=== PATIENT | female | born 1965 | race Caucasian/White ===

== ENCOUNTER → 2016-06-10 | Outpatient (CLI) | payer BC ==
[~2016-06-10] MED LIST: ACHYD1T PO; ASP81CT; ATR20T; CHOL10002; DCS100C PO; FOLI-88 PO; LOSA1TAB3 PO; MTF500T; NFBIOT1000 PO; NITR-33 PO; TIMOLOL
--- OUTSIDE RECORDS SUMMARY | 2016-06-10 07:24 | XMS REPORT | Continuity of Care Document ---
Author Author [facility] Organization [facility] Address Unknown Phone Unavailable Care Team Providers Care Aircraft Inspection Record Clerk Name Role Phone EKATERINA DAVID DO PCP Insurance Providers Payer Name Policy Number Subscriber Name Relationship [facility] [id number] Deborah Uriostegui 16 Self / Same As Patient Advance Directives Directive Response Recorded Date/Time Advance Directives No 01/20/14 1:38pm Health Care Power of Sand Screener No 01/20/14 1:38pm Resuscitation Status Full Code 01/20/14 1:38pm Chief Complaint and Reason for Visit Chief Complaint URETERAL STONE (OBSTRUCTIVE) COMPLICATED BY UTI Reason for Visit Urinary tract infection Ureteral stone with hydronephrosis Nausea and vomiting Abdominal pain Problems Medical Problems Problem Onset Date Status Urinary tract infection Unknown Active Ureteral stone with hydronephrosis Unknown Active Nausea and vomiting Unknown Active Abdominal pain Unknown Active Medications Medication Dose Route Sig Days/Qty Instructions Order Date Discontinued Date Status Atorvastatin Calcium 07/29/08 01/20/14 Discontinued Metformin HCl 07/29/08 01/20/14 Discontinued [Betimol Eye Gtts] 07/29/08 01/20/14 Discontinued Cholecalciferol 07/29/08 01/20/14 Discontinued Aspirin 07/29/08 01/20/14 Discontinued Losartan/Hydrochlorothiazide 1 Tab PO DAILY 01/20/14 Active Docusate Sodium 100 Mg PO DAILY 01/21/14 Active Folic Acid/Multivits-Min/Lut 1 Tab.chew PO DAILY 01/21/14 Active Social History Social History Problem Response Recorded Date/Time Alcohol Use Denies Use 01/20/2014 1:39pm Recreational Drug Use No 01/20/2014 1:39pm Recent Foreign Travel No 01/20/2014 1:39pm Recent Infectious Disease Exposure No 01/20/2014 1:39pm Smoking Status Never a Smoker 01/20/2014 1:44pm Query Response Start Date Stop Date Smoking Status Never a Smoker Hospital Discharge Instructions Patient Instructions Physician Instructions New, Converted, or Re-newed RX: RX on Chart Plan Please make appointment to been seen in office on monday Increase oral fluids for 48 hours and then as needed. Diet and Activity as tolerated. If questions or concerns contact your physician Or seek help at emergency department. Plan of Care Discharge Date 01/21/14 4:19pm Disposition 01 HOME, SELF-CARE Instructions/Education Provided Ureteroscopic Kidney Stone Removal (DC) Forms Provided Follow-Up Appts. PDI Surgical Prescriptions See Medications Section Functional Status Query Response Date Recorded Patient Orientation Person Place Time Situation January 21, 2014 4:26pm Comprehension Ability Understands Concepts January 20, 2014 8:00pm Allergies, Adverse Reactions, Alerts Allergen Type Severity Reaction Status Last Updated NKANo Known Allergies Allergy Unknown Active 07/29/08 Immunizations Name Given Type Date of Pneumonia Vaccine 05/22/11 Historical Hepatitis B Yes Historical Tetanus Booster (TDap) More than 5yrs Historical Vital Signs Acute Vital Signs Vital Response Date/Time Temperature (Fahrenheit) 96.7 degrees F (97.6 - 99.5) Temperature (Calculated Celsius) 35.85110 degrees C (36.4 - 37.5) Temperature Source Tympanic Pulse Rate (adult) 64 bpm (60 - 90) Respiratory Rate 18 bpm (12 - 24) O2 Sat by Pulse Oximetry 98 % (88 - 100) Blood Pressure 124/83 mm Hg Pain Pain Intensity 0 Height (Feet) 5 feet Height (Inches) 4.00 inches Height (Calculated Centimeters) 162.497362 cm Weight (Pounds) 224 pounds Weight (Calculated Grams) 361719.692 gm Weight (Calculated Kilograms) 101.093882 kilograms Calculated BMI 38.44 Results Test Source Date Result Interp. Ref. Range Comments Alanine Aminotransferase (ALT/SGPT) January 20, 2014 8:40am 18 U/L N 0 -55 Albumin January 20, 2014 8:40am 3.8 G/DL N 3.2-4.5 Alkaline Phosphatase January 20, 2014 8:40am 56 U/L N 40-136 Aspartate Amino Transf (AST/SGOT) January 20, 2014 8:40am 21 U/L N 5- 34 BUN/Creatinine Ratio January 20, 2014 8:40am 17 - Band Neutrophils July 29, 2008 5:45pm 3 % - Basophils # (Auto) January 20, 2014 8:40am 0.1 10^3/uL N 0.0-0.1 Basophils % (Manual) July 29, 2008 5:45pm 0 % - Basophils (%) (Auto) January 20, 2014 8:40am 1 % N 0-10 Blood Urea Nitrogen January 20, 2014 8:40am 14 MG/DL N 7-18 Calcium Level January 20, 2014 8:40am 9.4 MG/DL N 8.5-10.1 Carbon Dioxide Level January 20, 2014 8:40am 19 MMOL/L L 21-32 Chloride Level January 20, 2014 8:40am 104 MMOL/L N 98-107 Creatinine January 20, 2014 8:40am 0.82 MG/DL N 0.60-1.30 Eosinophils # (Auto) January 20, 2014 8:40am 0.1 10^3/uL N 0.0-0.3 Eosinophils % (Manual) July 29, 2008 5:45pm 1 % - Eosinophils (%) (Auto) January 20, 2014 8:40am 0 % N 0-10 Glucose Level January 20, 2014 8:40am 157 MG/DL H 70-105 Hematocrit January 20, 2014 8:40am 37 % N 35-52 Hemoglobin January 20, 2014 8:40am 11.6 G/DL N 11.5-16.0 Lipase January 20, 2014 8:40am 22 U/L N 8-78 Lymphocytes # (Auto) January 20, 2014 8:40am 1.1 X 10^3 N 1.0-4.0 Lymphocytes % (Manual) July 29, 2008 5:45pm 18 % - Lymphocytes (%) (Auto) January 20, 2014 8:40am 10 % L 12-44 Mean Corpuscular Hemoglobin January 20, 2014 8:40am 24 PG L 25-34 Mean Corpuscular Hemoglobin Concent January 20, 2014 8:40am 32 G/DL N 32-36 Mean Corpuscular Volume January 20, 2014 8:40am 74 FL L 80-99 Mean Platelet Volume January 20, 2014 8:40am 10.3 FL N 7.4-10.4 Monocytes # (Auto) January 20, 2014 8:40am 0.7 X 10^3 N 0.0-1.0 Monocytes % (Manual) July 29, 2008 5:45pm 4 % - Monocytes (%) (Auto) January 20, 2014 8:40am 6 % N 0-12 Neutrophils # (Auto) January 20, 2014 8:40am 9.8 X 10^3 H 1.8-7.8 Neutrophils % (Manual) July 29, 2008 5:45pm 74 % - Neutrophils (%) (Auto) January 20, 2014 8:40am 83 % H 42-75 Platelet Count January 20, 2014 8:40am 304 10^3/uL N 130-400 Potassium Level January 20, 2014 8:40am 3.7 MMOL/L N 3.6-5.0 Red Blood Count January 20, 2014 8:40am 4.93 10^6/uL N 4.35-5.85 Red Cell Distribution Width January 20, 2014 8:40am 20.5 % H 10.0- 14.5 Sodium Level January 20, 2014 8:40am 140 MMOL/L N 135-145 Stone Ammonia December 19, 2005 7:25am See report - Stone Calcium December 19, 2005 7:25am See report - Stone Magnesium December 19, 2005 7:25am See report - Stone Phosphate December 19, 2005 7:25am See report - Stone Uric Acid December 19, 2005 7:25am See report - Total Bilirubin January 20, 2014 8:40am 0.3 MG/DL N 0.1-1.0 Total Protein January 20, 2014 8:40am 7.3 G/DL N 6.4-8.2 Urine Bacteria January 20, 2014 9:40am LARGE /HPF H - Has specimen been collected/obtained? YSpecimen Description CLEAN CATCH Urine Bilirubin January 20, 2014 9:40am NEGATIVE - Has specimen been collected/obtained? YSpecimen Description CLEAN CATCH Urine Casts January 20, 2014 9:40am NONE /LPF - Has specimen been collected/obtained? YSpecimen Description CLEAN CATCH Urine Citrate December 19, 2005 7:25am See report - Urine Clarity January 20, 2014 9:40am VERY CLOUDY H - Has specimen been collected/obtained? YSpecimen Description CLEAN CATCH Urine Color January 20, 2014 9:40am YELLOW - Has specimen been collected/obtained? YSpecimen Description CLEAN CATCH Urine Creatinine December 19, 2005 7:25am See report - Urine Crystals January 20, 2014 9:40am NONE /LPF - Has specimen been collected/obtained? YSpecimen Description CLEAN CATCH Urine Culture Indicated January 20, 2014 9:40am YES - Has specimen been collected/obtained? YSpecimen Description CLEAN CATCH Urine Glucose (UA) January 20, 2014 9:40am 1+ H - Has specimen been collected/obtained? YSpecimen Description CLEAN CATCH Urine Ketones January 20, 2014 9:40am 4+ H - Has specimen been collected/obtained? YSpecimen Description CLEAN CATCH Urine Leukocyte Esterase January 20, 2014 9:40am 2+ H - Has specimen been collected/obtained? YSpecimen Description CLEAN CATCH Urine Mucus January 20, 2014 9:40am NEGATIVE /LPF - Has specimen been collected/obtained? YSpecimen Description CLEAN CATCH Urine Nitrite January 20, 2014 9:40am POSITIVE H - Has specimen been collected/obtained? YSpecimen Description CLEAN CATCH Urine Oxalate December 19, 2005 7:25am See report - Urine Protein January 20, 2014 9:40am 3+ H - Has specimen been collected/obtained? YSpecimen Description CLEAN CATCH Urine RBC January 20, 2014 9:40am TNTC /HPF H - Has specimen been collected/obtained? YSpecimen Description CLEAN CATCH Urine Specific Mondamin January 20, 2014 9:40am 1.025 H - Has specimen been collected/obtained? YSpecimen Description CLEAN CATCH Urine Squamous Epithelial Cells January 20, 2014 9:40am 5-10 /HPF - Has specimen been collected/obtained? YSpecimen Description CLEAN CATCH Urine Total Volume December 19, 2005 7:25am See report - Urine Urobilinogen January 20, 2014 9:40am 1 MG/DL - Has specimen been collected/obtained? YSpecimen Description CLEAN CATCH Urine WBC January 20, 2014 9:40am 5-10 /HPF H - Has specimen been collected/obtained? YSpecimen Description CLEAN CATCH Urine pH January 20, 2014 9:40am 5 - Has specimen been collected/ obtained? YSpecimen Description CLEAN CATCH White Blood Count January 20, 2014 8:40am 11.8 10^3/uL H 4.3-11.0 Glucometer July 31, 2008 11:07am 140 MG/DL H 70-110 Estimat Glomerular Filtration Rate January 20, 2014 8:40am > 60 - GFR INTERPRETIVE DATA UNITS FOR ESTIMATED GFR (eGFR): mL/min/1.73 M2 REFERENCE RANGE FOR ESTIMATED GFR (eGFR) eGFR NORMAL eGFR >60 MODERATELY DECREASED eGFR 30-59 SEVERLY DECREASED eGFR 15-29 KIDNEY FAILURE <15 (OR DIALYSIS) Urine Sulfate December 19, 2005 7:25am See report - Blood Morphology Comment July 29, 2008 5:45pm NORMAL - Urine Potassium December 19, 2005 7:25am See report - Urine Sodium December 19, 2005 7:25am See report - Urine RBC (Auto) January 20, 2014 9:40am 5+ H - Has specimen been collected/obtained? YSpecimen Description CLEAN CATCH Procedures No known history of procedures. Encounters Encounter Location Date/Time Admitted Inpatient Via [facility] 01/20/14 11:38am Recent Diagnosis Urinary tract infection Ureteral stone with hydronephrosis Nausea and vomiting Abdominal pain
--- NOTE | 2016-06-10 13:31 | Diagnostic Imaging Report ---
Bilateral screening mammogram. The current study was also evaluated with a Computer Aided Detection (CAD) system. INDICATION: Screening. No current complaints stated on the questionnaire. COMPARISON: 04/24/2015. FINDINGS: The breasts are composed of scattered fibroglandular densities. There are occasional punctate calcifications seen. Stable intramammary lymph nodes seen in the axillary tail of the right breast and in both axilla. Allowing for technique and positional differences, no suspicious change is seen. IMPRESSION: No significant change. ACR BI-RADS Category 2: Benign findings. Result letter will be mailed to the patient. Note: At least 10% of breast cancer is not imaged by mammography. Dictated by: Dictated on workstation # [id number]
== END ==
LOC: RAD 07:22
PROVIDERS: ATTEND Family Medicine
DX: Z12.31 Encounter for screening mammogram for malignant neoplasm of breast (principal)

== ENCOUNTER → 2017-06-16 | Outpatient (CLI) | payer BC ==
--- NOTE | 2017-06-16 19:06 | Diagnostic Imaging Report ---
INDICATION: Routine screening. Comparison is made with prior study from 06/10/2016 and 04/24/2015. The current study was also evaluated with a Computer Aided Detection (CAD) system. Both breasts are primarily involutional. Intramammary lymph node upper outer right breast is again noted. No new mass or malignant appearing microcalcifications are seen. The axillae are unremarkable. IMPRESSION: No mammographic features suspicious for malignancy are identified. ACR BI-RADS Category 2: Benign findings. Result letter will be mailed to the patient. Note: At least 10% of breast cancer is not imaged by mammography. Dictated by: Dictated on workstation # [id number]
== END ==
LOC: RAD 07:21
PROVIDERS: ATTEND Family Medicine
DX: Z12.31 Encounter for screening mammogram for malignant neoplasm of breast (principal)
CPT/HCPCS: 77067

== ENCOUNTER → 2018-07-10 | Outpatient (CLI) | payer BC ==
--- NOTE | 2018-07-10 10:54 | Diagnostic Imaging Report ---
US NON OB PELVIS COMP/TRANSVAG TECHNIQUE: Transabdominal and transvaginal grayscale, color Doppler and pulse duplex imaging of the pelvis was performed. INDICATION: Pelvic pain COMPARISON: CT of the abdomen and pelvis of 01/20/2014. FINDINGS: The uterus measures 7.4 x 8.0 x 3.6 cm. The myometrium is heterogeneous in echogenicity with three circumscribed heterogeneous solid masses present. The largest measures 4.4 x 3.6 x 4.5 cm and is located near the fundus. There are additional smaller intramural fibroids present. Due to the numerous myometrial masses, the endometrium is poorly seen. Where visualized it measures approximately 0.37 cm in thickness. Neither the right nor left ovary can be visualized due to surrounding bowel gas. No free pelvic fluid or suspicious adnexal mass. IMPRESSION: Multiple fibroids throughout the uterus are not significantly changed since CT of the abdomen and pelvis of 01/20/2014. Dictated by: Dictated on workstation # [id number]
--- NOTE | 2018-07-10 13:20 | Diagnostic Imaging Report ---
INDICATION: Routine screening. COMPARISON: 06/16/2017 and 06/10/2016. TECHNIQUE: 2D and 3D bilateral screening mammography was performed with CAD. FINDINGS: Scattered fibroglandular densities are identified bilaterally. Benign-appearing nodules in the upper outer right breast remain stable. No new mass or malignant appearing microcalcifications are seen. The axillae are unremarkable. IMPRESSION: No mammographic features suspicious for malignancy are identified. ACR BI-RADS Category 2: Benign findings. Result letter will be mailed to the patient. Note: At least 10% of breast cancer is not imaged by mammography. Dictated by: Dictated on workstation # [id number]
== END ==
LOC: RAD 07:11
PROVIDERS: ATTEND Family Medicine
DX: Z12.31 Encounter for screening mammogram for malignant neoplasm of breast (principal); D25.9 Leiomyoma of uterus, unspecified
CPT/HCPCS: 76830; 76856; 77067

== ENCOUNTER → 2019-07-17 | Outpatient (CLI) | payer BC ==
--- NOTE | 2019-07-17 16:05 | Diagnostic Imaging Report ---
INDICATION: Routine screening. COMPARISON: Comparison is made with prior mammograms from 07/10/2018 and 06/16/2017. TECHNIQUE: 2-D and 3-D bilateral screening mammography was performed. The current study was also evaluated with a Computer Aided Detection (CAD) system. 3-D tomosynthesis was also performed and reviewed. FINDINGS: Scattered fibroglandular densities are identified bilaterally. Benign circumscribed nodules in the outer right breast are stable. No new mass or malignant-appearing microcalcifications are seen. Axillae are unremarkable. IMPRESSION: No mammographic features suspicious for malignancy are identified. ACR BI-RADS Category 2: Benign findings. Result letter will be mailed to the patient. Note: At least 10% of breast cancer is not imaged by mammography. Dictated by: Dictated on workstation # [id number]
== END ==
LOC: RAD 14:37
PROVIDERS: ATTEND Family Medicine
DX: Z12.31 Encounter for screening mammogram for malignant neoplasm of breast (principal)
CPT/HCPCS: 77067

== ENCOUNTER → 2020-06-04 | Outpatient (CLI) | payer BC ==
[~2020-06-04] MED LIST changes: +CATHETER FLUSH 10 ML SYR IV PRN
--- NOTE | 2020-06-04 13:59 | Diagnostic Imaging Report ---
RADIOPHARMACEUTICAL: 5.5mCi Tc-99m Choletec IV INDICATION: Right upper quadrant abdominal pain. TECHNIQUE: Anterior dynamic imaging for 1 hour. Additional 60 minutes of imaging was performed after the patient ingested an 8 ounce can of Ensure. FINDINGS: There is homogenous uptake throughout the liver. The gallbladder is visualized at 30minutes and small bowel at 20minutes. After CCK analog administration, there is increased contraction of the gallbladder with increased calculated GBEF at 83%. IMPRESSION: 1. No evidence of acute cholecystitis or common duct obstruction. 2. Elevated GBEF of 83%. This is a nonspecific finding, though can be associated with biliary hyperkinesia. Given mild elevation, this could also simply be physiologic for the patient. Dictated by: Dictated on workstation # [id number]
== END ==
LOC: CARD 11:25
PROVIDERS: ATTEND Family Medicine
DX: R10.11 Right upper quadrant pain (principal)
CPT/HCPCS: 78227; A9537

== ENCOUNTER → 2020-07-20 | Outpatient (CLI) | payer BC ==
[~2020-07-20] MED LIST changes: -CATHETER FLUSH 10 ML SYR IV PRN
--- NOTE | 2020-07-20 09:38 | Diagnostic Imaging Report ---
INDICATION: Routine screening. Comparison is made with prior mammogram 07/17/2019 and 07/10/2018. 2-D and 3-D bilateral screening mammography was performed with CAD. Scattered fibroglandular densities are identified bilaterally. Benign nodules in the upper outer right breast appears stable. The left breast appears stable. No spiculated mass or malignant appearing microcalcifications are seen. Axillae are unremarkable. IMPRESSION: BI-RADS Category 2 No mammographic features suspicious for malignancy are identified. ACR BI-RADS Category 2: Benign findings. Result letter will be mailed to the patient. Note: At least 10% of breast cancer is not imaged by mammography. Dictated by: Dictated on workstation # [id number]
== END ==
LOC: RAD 08:15
PROVIDERS: ATTEND Family Medicine
DX: Z12.31 Encounter for screening mammogram for malignant neoplasm of breast (principal)
CPT/HCPCS: 77063; 77067

== ENCOUNTER → 2020-08-17 | Outpatient (CLI) | payer BC | LOC: CARD 09:00 | PROVIDERS: ATTEND Internal Medicine Cardiovascular Disease | DX: I10 Essential (primary) hypertension (principal) | CPT/HCPCS: 93306 ==

== ENCOUNTER → 2020-09-14 | Outpatient (CLI) | payer BC ==
[~2020-09-14] VITALS: Ht 162 cm; Wt 115.0 kg
[~2020-09-14] MED LIST changes: +CATHETER FLUSH 10 ML SYR IV PRN
[2020-09-14 09:05] VITALS: BP 137/83
--- NOTE | 2020-09-14 16:21 | Cardiology Stress Test Report ---
Stress Test Report Date of Procedure/Referring: Date of Procedure: Sep 14, 2020 PCP Ricky Moody MD Admitting Physician Delai Hernandez DO Indications: HTN Baseline Heart Rate: 70 Baseline Blood Pressure: Blood Pressure Systolic: 137 Blood Pressure Diastolic: 83 Vital Signs Date Time Temp Pulse Resp B/P (MAP) Pulse Ox O2 Delivery O2 Flow Rate FiO2 09/14/20 09:05 80 18 137/83 (101) 98 Room Air Baseline Vital Signs Vital Signs Date Time Temp Pulse Resp B/P (MAP) Pulse Ox O2 Delivery O2 Flow Rate FiO2 09/14/20 09:05 80 18 137/83 (101) 98 Room Air Baseline EKG: Baseline EKG: NSR Summary: After explaining the procedure and details to the patient, she signed the consent and was brought to the stress nuclear laboratory. Patient exercised on standard Taco protocol, EKG, heart rate and blood pressure were monitored continuously, resting and stress doses of radio tracer were injected, imaging was acquired and reviewed in the short axis, horizontal long axis and vertical long axis views Patient was able to exercise for a total of 5 minutes on Taco protocol, METs 7 Maximum heart rate 139 Maximum blood pressure 197/107 Stress EKG, Minimal nondiagnostic changes Recovery EKG, Return to baseline TID: 0.97 SSS: 10 SDS: 5 EF: 71 Conclusion: 1. Fair exercise tolerance for a total of 5 minutes, 7 minutes on standard Taco protocol achieving 85% of maximal expected heart rate 2. Severe hypertensive response to exercise with peak blood pressure 197/107 return to baseline during recovery 3. Minimal nondiagnostic EKG changes with exercise return to baseline during recovery 4. Breast attenuation affecting the quality of the images there is mild decreased uptake at the basal to mid anterior wall and basal to mid inferior wall with mild reversibility, probably secondary to the extracardiac attenuation, overall it is considered nondiagnostic results 5. Normal left ventricular size, EF 71% RICKY MOODY MD Sep 14, 2020 16:21
== END ==
LOC: CARD 07:30
PROVIDERS: ATTEND Internal Medicine Cardiovascular Disease
DX: I10 Essential (primary) hypertension (principal)
CPT/HCPCS: 78452; 93017; A9502

== ENCOUNTER → 2021-02-10 | Outpatient (CLI) | payer BC ==
[~2021-02-10] MED LIST changes: -CATHETER FLUSH 10 ML SYR IV PRN
[2021-02-10 10:27] LABS: HEMATOCRIT 42 % (35-52); HEMOGLOBIN 14.2 g/dL (11.5-16.0); MEAN CORPUSCULAR HEMOGLOBIN 30 pg (25-34); MEAN CORPUSCULAR HGB CONC 34 g/dL (32-36); MEAN CORPUSCULAR VOLUME 91 fL (80-99); MEAN PLATELET VOLUME 9.4 fL (9.0-12.2); PLATELET COUNT 317 10^3/uL (130-400); WHITE BLOOD COUNT 15.8 10^3/uL (4.3-11.0)
[2021-02-10 10:56] LABS: ALBUMIN 4.4 GM/DL (3.2-4.5); BILIRUBIN,TOTAL 0.8 MG/DL (0.1-1.0); CALCIUM 10.5 MG/DL (8.5-10.1); CREATININE SERUM 0.74 MG/DL (0.60-1.30); POTASSIUM 3.9 MMOL/L (3.6-5.0)
--- NOTE | 2021-02-10 11:15 | Diagnostic Imaging Report ---
EXAMINATION: CT abdomen and pelvis without contrast. TECHNIQUE: Multiple contiguous axial images were obtained through the abdomen and pelvis without the use of intravenous contrast. All CT scans use one or more of the following dose optimizing techniques: automated exposure control, MA and/or KvP adjustment based on patient size and exam type or iterative reconstruction. HISTORY: LLQ PAIN COMPARISON: 01/20/2014 FINDINGS: Lung bases: The lung bases are clear. Solid organs: Diffuse hypoattenuation of the liver compatible with hepatic steatosis. The gallbladder is surgically absent. There is no biliary ductal dilation. Pancreas is normal. Spleen is normal. Adrenal glands are normal. The kidneys are normal without visualized calculus or hydronephrosis. Bowel: Surgical changes of the stomach. There is no bowel obstruction. There is scattered colonic diverticulosis. There is a focal inflamed diverticulum within the descending colon with surrounding inflammatory stranding. No findings of acute appendicitis. Peritoneum: There is no intraperitoneal free fluid or free air. No loculated fluid collection. No suspicious lymphadenopathy. Vasculature: Calcification of the aorta without aneurysm. Musculoskeletal: Degenerative changes of the spine without suspicious osseous lesion or compression fracture. Pelvis: A likely partially calcified uterine fibroids. The urinary bladder is normal. IMPRESSION: 1. Findings of acute diverticulitis within the left descending colon without abscess or free air. 2. Hepatic steatosis. CRITICAL FINDING in an outpatient. Report was faxed and called to Caleb Hernandez office of Dr. Hernandez by luis carlos at 11:14am. Dictated by: Dictated on workstation # [id number]
== END ==
LOC: RAD 10:07
PROVIDERS: ATTEND Family Medicine
DX: K76.0 Fatty (change of) liver, not elsewhere classified (principal); K57.32 Diverticulitis of large intestine without perforation or abscess without bleeding; Z87.442 Personal history of urinary calculi
CPT/HCPCS: 36415; 74176; 80053; 85027; 86141

== ENCOUNTER → 2021-07-21 | Outpatient (CLI) | payer BC ==
--- NOTE | 2021-07-22 09:07 | Diagnostic Imaging Report ---
INDICATION: Routine screening. COMPARISON: 07/20/2020 and 07/17/2019. TECHNIQUE: 2D and 3D bilateral screening mammography was performed with CAD. FINDINGS: Scattered fibroglandular densities are identified bilaterally. Benign nodules in the upper outer right breast are stable. No spiculated mass or malignant-appearing microcalcifications are seen. The axillae are unremarkable. IMPRESSION: No mammographic features suspicious for malignancy are identified. ACR BI-RADS Category 2: Benign findings. Result letter will be mailed to the patient. Note: At least 10% of breast cancer is not imaged by mammography. Dictated by: Dictated on workstation # [id number]
== END ==
LOC: RAD 15:25
PROVIDERS: ATTEND Family Medicine
DX: Z12.31 Encounter for screening mammogram for malignant neoplasm of breast (principal)
CPT/HCPCS: 77063; 77067

== ENCOUNTER → 2022-07-25 | Outpatient (CLI) | payer BC ==
--- NOTE | 2022-07-25 09:07 | Diagnostic Imaging Report ---
INDICATION: Routine screening. COMPARISON: 07/21/2021 and 07/20/2020. TECHNIQUE: 2D and 3D bilateral screening mammography was performed with CAD. FINDINGS: Scattered fibroglandular densities are identified bilaterally. The parenchymal pattern is stable. No mass or malignant-appearing microcalcifications are seen. The axillae are unremarkable. IMPRESSION: No mammographic features suspicious for malignancy are identified. ACR BI-RADS Category 1: Negative. Result letter will be mailed to the patient. Note: At least 10% of breast cancer is not imaged by mammography. Dictated by: Dictated on workstation # [id number]
== END ==
LOC: RAD 07:33
PROVIDERS: ATTEND Family Medicine
DX: Z12.31 Encounter for screening mammogram for malignant neoplasm of breast (principal)
CPT/HCPCS: 77063; 77067